=== PATIENT | female | born 1995 | race Caucasian/White ===

== ENCOUNTER → 2025-01-22 10:05 | Outpatient (REF) | payer MEDICARE, OTHER, SELFPAY | LOC: HWRAD 10:05 | PROVIDERS: ATTENDING PHYSICIAN Urology; FAMILY PHYSICIAN Internal Medicine | DX: N20.0 Calculus of kidney (principal); N13.5 Crossing vessel and stricture of ureter without hydronephrosis | CPT/HCPCS: 76775 ==

== ENCOUNTER 2025-11-07 10:54 | Emergency (ER) | payer MEDICARE, OTHER, SELFPAY ==
[2025-11-07 11:26] VITALS: BP 126/83
[2025-11-07 11:53] LABS: Hematocrit 45.0 % (37.0-47.0); Hemoglobin 14.9 g/dL (12.0-16.0); Mean Corp Hgb Conc. 33.1 g/dL (33.0-37.0); Mean Corpuscular Volume 84.9 fL (81.0-99.0); Nucleated Red Blood Cells % 0 %; Platelet Count 233 10^3/uL (130-400); Red Cell Dist. Width 14.2 % (11.5-14.5)
[2025-11-07 12:00] LABS: HCG, Serum Qualitative Screen Negative
[2025-11-07 12:13] LABS: ALT (SGPT) 27 U/L (0-35); AST (SGOT) 34 U/L (14-36); Albumin 5.2 g/dl (3.5-5.0); Alkaline Phosphatase 86 U/L (38-126); Blood Urea Nitrogen 16 mg/dl (7-17); Calcium 10.2 mg/dl (8.4-10.2); Carbon Dioxide 17 mmol/L (22-30); Chloride 105 mmol/L (98-107); Glucose 123 mg/dl (70-99); Lipase 189 U/L (23-300); Potassium 4.5 mmol/L (3.5-5.1); Sodium 137 mmol/L (135-145); Total Protein 9.4 g/dl (6.3-8.2); eGFR > 60.00
[2025-11-07 16:10] VITALS: BMI 24.0
[2025-11-07] MEDS: NSS 1000 IV ×2 (16:24→18:14)
[2025-11-07] MEDS: ZOFRAN 4 MG IV (16:28)
--- NOTE | 2025-11-07 17:18 | ED.GENMED ---
History of Present Illness
General
Chief Complaint: Abdominal Symptoms
Time Seen by Provider: 11/07/25 16:07
History of Present Illness
History of Present Illness:
30-year-old female presents to the emergency department for evaluation of vomiting and watery diarrhea over the course of the day. Having difficulty keeping down fluids. Feeling weak and fatigued. Has an ileostomy due to Crohn's and concerned
about dehydration. Reports minimal abdominal pain at this time
Past History
Past History
ED Past Medical History: Other (Crohn's, kidney stones)
ED Past Surgical History: Bowel resection and Urological (Kidney stone removal)
Social History
Tobacco: Non-smoker
Alcohol: None
Drug: None
Personal: Single
Living: with family
Employment: Employed
Family History
Family History: Other (Noncontributory)
Review of Systems
Review of Systems
Allergies reviewed?: Yes
All Other Systems: ROS reviewed and negative except as documented in HPI and ROS
Phy Exam
Physical Exam
Physical Exam:
GEN: Well appearing, NAD, WDWN
HEENT: Oral mucosa moist, no scleral icterus
Cardiac: Regular rate
Lung: No respiratory distress, no tachypnea
Abdomen: Ileostomy in the left lower abdomen with watery green output, abdomen soft and nontender
MSK: No gross deformity or injuries
Skin: Good color, no pallor or jaundice, no rashes
Neuro: AO x3, moves all extremities freely
Psych: Calm, cooperative
Course
Orders/Labs/Results
Orders:
Orders
11/07/25 11:26
Test Result ONCE
11/07/25 11:38
Complete Blood Count/With Diff Urgent
Comprehensive Metabolic Panel Urgent
HCG, Serum Qualitative Screen Urgent
Comment: Notify provider if positive test present
Lipase Urgent
11/07/25 16:13
0.9% Sodium Chloride 1000 ml [Nss] 1,000 ml IV BOLUS
Ondansetron Injectable [Zofran] 4 mg IV NOW STA
Abnormal Lab Results
11/07/25
11:38
WBC 13.6 H 10^3/uL
(4.8-10.8)
Absolute Neuts (auto) 12.2 H 10^3/uL
(1.4-6.5)
Absolute Lymphs (auto) 0.8 L 10^3/uL
(1.2-3.4)
Neutrophils % 89.7 H %
(42.2-75.2)
Lymphocytes % 6.1 L %
(20.5-51.1)
Carbon Dioxide 17 L mmol/L
(22-30)
Glucose 123 H mg/dl
(70-99)
Total Protein 9.4 H g/dl
(6.3-8.2)
Albumin 5.2 H g/dl
(3.5-5.0)
11/07/25 11:38
11/07/25 11:38
Vital Signs
Initial and Last Documented VS:
Initial Vital Signs
Temp Pulse Resp BP Pulse Ox
98.8 F 106 18 126/83 97
11/07/25 11:26 11/07/25 11:26 11/07/25 11:26 11/07/25 11:26 11/07/25 11:26
Last Documented Vital Signs
Temp Pulse Resp BP Pulse Ox
98.8 F 89 18 118/71 97
11/07/25 11:26 11/07/25 17:44 11/07/25 17:44 11/07/25 17:44 11/07/25 17:44
MDM/Problems Addressed
MDM/Problems Addressed:
Likely self-limited viral syndrome. Given IV fluids for rehydration in the ED and is able to tolerate p.o. fluids at time of discharge. Will be discharged with antiemetics, no indication for imaging
*Pulse Oximetry
SaO2: 97
Patient hypoxic: no
*Critical Care Note
Total Time (30-74mins, 75-104mins- exclusive of procedures): Not Applicable
ED Attending Note
-
Portions of this chart may have been created with voice recognition software.� Occasional wrong word or��sound alike� substitutions may have occurred due to the inherent limitations of voice recognition software.
Discharge Plan
Departure
Patient Disposition: Home (Routine Discharge)
Date of Disposition: 11/07/25
Time of Disposition: 18:04
Patient with high blood pressure during this ER visit?: No
Discharge Problem:
Gastroenteritis
Instructions: Acute Diarrhea
Prescriptions:
New
ondansetron 4 mg tablet,disintegrating
4 mg PO TIDPRN PRN (Reason: nausea/vomiting) Qty: 10 0RF
No Action
esomeprazole magnesium [Nexium] 40 MG capsule,delayed release(DR/EC)
40 mg PO DAILY
Patient Comments:
pt needs to get her med refilled- doesn't remember last dose
cholecalciferol (vitamin D3) [Vitamin D3] 25 MCG capsule
2,000 unit PO DAILY
Tumeric
500 mg PO DAILY
Vitamin C
2 tab PO DAILY
Referrals:
Vj Reyes MD [Family Provider, Internal Medicine]
Interventions
Interventions:
*General Assessment Last Done: 11/07/25 16:11
*Neglect/Abuse Screening Last Done: 11/07/25 16:11
*ED COVID-19 Vaccine History Last Done: 11/07/25 16:11
*ED Influenza Vaccine History Last Done: 11/07/25 16:14
[facility] Fall Risk Assessment Tool Last Done: 11/07/25 17:43
[facility] Assessment Last Done: 11/07/25 16:11
Discharge Date and Time
Print Language: BARBADIAN
[2025-11-07 17:44] VITALS: BP 118/71
[2025-11-07 20:07] VITALS: BP 114/65
== END 2025-11-07 20:17 | disposition home or self-care (01) ==
LOC: EMR 10:54
PROVIDERS: Emergency Medicine; EMERGENCY PHYSICIAN Emergency Medicine; FAMILY PHYSICIAN Internal Medicine
DX: K52.9 Noninfective gastroenteritis and colitis, unspecified (principal); K50.90 Crohn's disease, unspecified, without complications; Z93.2 Ileostomy status; Z90.49 Acquired absence of other specified parts of digestive tract
CPT/HCPCS: 99284; 80053; 83690; 84703; 85025